=== PATIENT | male | born 1995 | race African-American/Black ===

== ENCOUNTER 2017-03-31 18:59 | Emergency (ER) | payer SELFPAY ==
[~2017-03-31] VITALS: Ht 172.7 cm; Wt 65.8 kg
[2017-03-31] MEDS ORDERED: Solu-MEDROL 125mg Inj IVP ONE (19:15)
--- NOTE | 2017-03-31 19:16 | Emergency Room Report ---
History of Present Illness General Chief Complaint: Allergic Reaction Source: EMS Present Illness HPI 21-year-old male presents ER BIB ambulance following allergic reaction at work. Patient reports onset of symptoms following ingestion of vegan pizza. Patient reports feeling "something caught in throat". Patient reports hives on the side of his neck. Patient complains of itchiness. Patient denies history of food allergies. Patient reports being given medication in ambulance on way to ER that provided mild relief of symptoms. Patient denies fever, nausea, vomiting, chest pain, SOB, abdominal pain. Allergies: Coded Allergies: No Known Allergies (Unverified , 03/31/17) Patient History Past Medical History: see triage record Pertinent Family History: none Social History: Denies: smoking, alcohol use, drug use Reviewed Nursing Documentation: PMH: Agreed, PSxH: Agreed Nursing Documentation-PMH Past Medical History: No Stated History Review of Systems All Other Systems: negative except mentioned in HPI Physical Exam Vital Signs Date Time Temp Pulse Resp B/P (MAP) Pulse Ox O2 Delivery O2 Flow Rate FiO2 03/31/17 18:40 96.4 132 18 144/92 99 Room Air Sp02 EP Interpretation: reviewed, normal General Appearance: well appearing, no apparent distress, alert, GCS 15 Head: normocephalic, atraumatic Eyes: bilateral eye normal inspection, bilateral eye PERRL ENT: hearing grossly normal, TMs + canals normal, moist mucus membranes, other - mildly edematous uvula Neck: full range of motion, supple/symm/no masses Respiratory: chest non-tender, lungs clear, normal breath sounds, no respiratory distress, no retraction, no accessory muscle use, no wheezing, speaking full sentences, other - no stridor Cardiovascular #1: regular rate, rhythm Gastrointestinal: non tender, soft, non-distended, no guarding, no rebound Musculoskeletal: digits/nails normal, gait/station normal, normal range of motion Neurologic: alert, oriented x3, responsive, motor strength/tone normal, sensory intact, speech normal Psychiatric: mood/affect normal Skin: normal color, no rash, warm/dry, well hydrated, other - right lateral neck: mild urticaria Lymphatic: no adenopathy Medical Decision Making PA Attestation Dr. Cheatham is my supervising Physician whom patient management has been discussed with. Diagnostic Impression: Primary Impression: Allergic reaction ER Course Pt. presents to the ED c/o food allergy. Ddx considered but are not limited to hives, rash, food allergy. Vital signs: pt. is afebrile, vitals are within acceptable range. ORDERS: none required at this time, the diagnosis is clinical ED INTERVENTIONS: Pepcid provided in ER Solumedrol provided in ER DISCHARGE: Patient is in no acute distress, nontoxic, hemodynamically stable. Patient is sleeping quietly in no acute respiratory distress. At this time, pt. is stable for d/c home. Patient's father will take patient home. Rx provided for Benadryl Rx provided for Prednisone Will provide printed patient care instructions, and any necessary prescriptions. Discussed avoidance of foods that may cause similar symptoms to present again. Care plan and follow up instructions have been discussed with the patient prior to discharge. Patient questions asked and answered. ER precautions given. Patient instructed to return to ER for new or worsening of symptoms. Last Vital Signs Date Time Temp Pulse Resp B/P (MAP) Pulse Ox O2 Delivery O2 Flow Rate FiO2 03/31/17 18:40 96.4 132 18 144/92 99 Room Air Status: improved Reevaluation Impression Patient resting comfortably in ER in no acute distress. Patient observed for 1 hr following administration of medication. Patient able to tolerate PO liquids during this time. Disposition: HOME, SELF-CARE Condition: Stable Scripts Prednisone* (PREDNISONE*) 20 Mg Tablet 40 MG ORAL DAILY for 5 Days, #10 TAB Prov: Fco Tejada 03/31/17 Diphenhydramine Hcl* (BENADRYL*) 25 Mg Capsule 25 MG ORAL Q6H Y for Itching for 7 Days, #7 CAP Prov: Fco Tejada 03/31/17 Patient Instructions: Allergies, Food Allergy Additional Instructions: Followup with primary care provider in 3 - 5 days to discuss treatment and further referral for allergy testing. Take medications as directed. Patient questions asked and answered. ER precautions given, patient instructed to return to ER immediately for any new or worsening of symptoms. Fco Tejada Mar 31, 2017 19:16
[2017-03-31 19:30] VITALS: BP 144/92
[2017-03-31] MEDS ORDERED: BENADRYL25 MG ORAL (20:22)
[2017-03-31] MEDS ORDERED: PREDNISONE20 MG ORAL (20:22)
[2017-03-31 21:30] VITALS: BP 119/74
== END 2017-03-31 21:30 | disposition home or self-care (01) ==
LOC: EDBD 18:59 → EMR 19:10
DX: T78.40XA Allergy, unspecified, initial encounter (principal); X58.XXXA Exposure to other specified factors, initial encounter
CPT/HCPCS: 96374; 96375; 99284; J2930; S0028